=== PATIENT | male | born 1985 | race Caucasian/White ===

== ENCOUNTER 2016-05-26 17:09 | Emergency (ER) | payer OTHER ==
[~2016-05-26] VITALS: Ht 182.9 cm; Wt 72.7 kg
[~2016-05-26 17:09] MED LIST: HYD200 PO; METHOTREX PO; PRE20 PO; TACR100O2 TP; [UNRECOGNIZED DRUG - OTHER]
[2016-05-26 17:12] VITALS: BP 146/98; PULSE 104; RESP 18; O2SAT 99
--- NOTE | 2016-05-26 18:08 | ED.REPORT ---
HPI-General Illness Date of Service May 26, 2016 ED Provider: Dr. Harry Viramontes D.O. A 31 year old male with a history of systemic lupus erythematosus, peptic ulcers , and immune thrombocytopenic purpura presents to the ED from Urgent Care after he was found to have low platelet levels just prior to arrival. The patient was seen at for malaise, loss of appetite, fever (38.3 in ED), chills, diaphoresis, cough, sore throat, nausea, diarrhea, vomiting, worsened malar rash , insomnia, epigastric pain, and cough-induced chest pain onset three days ago. He denies generalized myalgias, ear pain, hematemesis, hemoptysis, hematochezia , melena, or headache. His rapid strep test at was negative. He has never had a blood transfusion previously. Nursing Notes Stated Complaint: LOW PLATELET LEVEL, TRANSFUSION Chief Complaint: General Complaint Nursing Notes Reviewed: Yes Allergies: Coded Allergies: Sulfa (Sulfonamide Antibiotics) (Verified Allergy, Unknown, 05/26/16) Scheduled ([Betamethason]) PRN Hydroxychloroqine-Expunged Drug, Do Not Renew (Plaquenil-Expunged Drug, Do Not Renew!) 200 Mg Tablet MG PO DAILY MethoTREXate-Expunged Drug, Do Not Renew! (RheumaTREX-Expunged Drug, Do Not Renew!) 2.5 Mg Tablet 4 PO BID PredniSONE-Expunged Drug, Do Not Renew! (PredniSONE-Expunged Drug, Do Not Renew! ) 20 Mg Tab 10 MG PO DAILY TAKE WITH FOOD Tacrolimus-Expunged Drug, Do Not Renew! (Protopic-Expunged Drug, Do Not Renew!) 100 Gm Oint..gm. 100 GM TP PRN General Time Seen by MD: 18:08 Chief Complaint Other (Low Platelet Levels) Hx Obtained From: Patient Arrived By: Walk-in Sudden in Onset?: Yes Onset Occurred: 3 days ago Symptom Duration: Since onset Location: : Neck (Throat) Quality: Painful Severity: Current: Moderate Severity: Maximum: Moderate Associated with: Reports: Cough, Fever, Nausea, Vomiting, Denies: Headache Pertinent Negative: Relieved by nothing Context Related History: Reports Autoimmune disorder Recent Healthcare: Recent doctor visit, Recent testing Similar Sx Previous: Yes Past Medical History Past Medical History Systemic lupus erythematosus Peptic ulcers Immune thrombocytopenic purpura Past Surgical History None reported Smoking History Unknown if Ever Smoker Social History Other Social History: Good social support, Lives with children Ambulatory Status Independent Review of Systems + low platelet levels, loss of appetite Full Review of Systems Constitutional: Reports: Chills, Fever (38.3 in ED), Malaise Ears / Nose / Throat: Reports: Sore throat, Denies: Earache bilateral Respiratory: Reports: Non-productive cough, Denies: Hemoptysis Cardiovascular: Reports: Chest pain (With cough) GI: Reports: Abdominal pain (Epigastric pain), Diarrhea, Nausea, Vomiting, Denies: Hematemesis, Hematochezia, Melena Musculoskeletal: Denies: Myalgia Skin: Reports Diaphoresis, Reports Rash (Malar rash worsened from baseline) Neurologic: Denies: Headache Psychiatric: Reports: Insomnia Complete sys rev & neg: except as marked. Physical Exam Vital Signs Vital Signs Date Time Temp Pulse Resp B/P Pulse Ox O2 Delivery O2 Flow Rate FiO2 05/26/16 22:58 36.7 84 12 128/66 99 Room Air 05/26/16 20:30 36.9 82 18 122/72 99 05/26/16 17:12 38.3 104 18 146/98 99 Room Air Initial VS: Reviewed Head / Eyes: Atraumatic, Normocephalic Neck: Supple, Full range of motion Respiratory: Breath sounds normal, Clear to auscultation, No respiratory distress Cardiovascular: Regular rate & rhythm, Heart sounds normal Skin: Warm, Dry, No cyanosis Neurologic: Alert, Oriented, Nonfocal Psychiatric: Mood/affect normal, Behavior normal, Normal thought content General/Constitutional: Awake, Alert, No acute distress ENT: Airway patent, Mucous membranes moist Pharynx / Tonsils / Uvula: Positive: Pharyngeal erythema Left-sided malar rash Abdomen: Soft, Non-tender Interpretation & Diagnostics Interpretation & Diagnostics: Influenza Negative Lab Results Interpretation Result Diagram: 05/26/16 2125 05/26/16 1845 Test 05/26/16 18:45 05/26/16 20:41 05/26/16 21:25 White Blood Count 7.0th/mm3 (3.8-10.1) Red Blood Count 5.37mil/mm3 (4.40-5.80) Mean Corpuscular Volume 84fL (81-100) Mean Corpuscular Hemoglobin 29.8pg (27.0-35.0) Mean Corpuscular Hemoglobin Concent 35.2% (32.0-37.0) Red Cell Distribution Width 13.1% (12.3-15.4) Platelet Count 21bil/L (150-400) Neutrophils (%) (Auto) 65% (40-74) Lymphocytes (%) (Auto) 19% (14-46) Monocytes (%) (Auto) 16% (4-12) Eosinophils (%) (Auto) 0% (0-5) Basophils (%) (Auto) 0% (0-3) Hematology Comments Wbc Sodium Level 132mEq/L (134-144) Potassium Level 3.9mEq/L (3.5-5.2) Chloride Level 92mEq/L (97-108) Carbon Dioxide Level 25mmol/L (18-29) Blood Urea Nitrogen 13mg/dL (6-20) Creatinine 0.88mg/dL (0.76-1.27) Estimat Glomerular Filtration Rate 106mL/min (>59) Glucose Level 93mg/dL (60-99) Calcium Level 8.9mg/dL (8.5-10.1) Total Bilirubin 0.4mg/dL (0.0-1.2) Aspartate Amino Transf (AST/SGOT) 26U/L (0-50) Alanine Aminotransferase (ALT/SGPT) 13U/L (0-44) Alkaline Phosphatase 61U/L (25-150) Total Protein 7.8g/dL (6.4-8.4) Albumin 4.0g/dL (3.4-5.0) Hold [place] Top Tube Received (Received) Urine Color Yellow (YELLOW) Urine Appearance Clear (CLEAR,HAZY) Urine pH 6.0 (5.0-8.0) Urine Specific [place] 1.020 (1.003-1.035) Urine Protein Negativemg/dL (NEG,TRACE) Urine Glucose (UA) Negativemg/dL (NEGATIVE) Urine Ketones Negativemg/dL (NEGATIVE) Urine Occult Blood Negative (NEGATIVE) Urine Nitrite Negative (NEGATIVE) Urine Bilirubin Negative (NEGATIVE) Urine Urobilinogen 1.0mg/dL (NORMAL) Urine Leukocyte Esterase Negative (NEGATIVE) Urine RBC 0-2/hpf (0-2) Urine WBC 0-5/hpf (0-5) Urine Epithelial Cells None/hpf (NONE-MOD) Urine Crystals None seen (NONE SEEN) Urine Bacteria None/hpf (NONE-FEW) Urine Hyaline Casts None/lpf (NONE) Urine Granular Casts None seen (NONE SEEN) Urine Waxy Casts None seen (NONE SEEN) Urine Red Blood Cell Casts None seen (NONE SEEN) Urine White Blood Cell Casts None seen (NONE SEEN) Urine Mucus None seen (None Seen) Urine Trichomonas None seen (NONE SEEN) Urine Yeast None (NONE SEEN) Urinalysis Comment None Urine Culture Reflexed Not indicated Hemoglobin 13.7g/dL (13.8-17.2) Hematocrit 39.2% (41.0-50.0) X-Ray Chest Interpretation Chest Xray Interpretation: IMPRESSION: No acute cardiopulmonary disease. Dictated by: Ramona Méndez M.D. on 05/26/2016 at 19:06 View: AP & lat Interpretation / Wet Read by: Interpret - Radiologist Re-Eval/Medical Decision Med Decision/Clinical Course 31-year-old male was seen at the urgent care for gastrointestinal symptoms and a sore throat. He has a history of ITP so a CBC was performed. Evidently his platelet count was 10,000. The urgent care doctors consulted with his marketing technology coordinator and he was recommended to come in for platelet transfusion. Mr. Frost is having no bleeding whatsoever. He has not had a nosebleed. He does not have any bruising or petechia to skin. He does not having bleeding when he blows his nose or brushes his teeth. He has not had any black or bloody stools. Did have a low-grade fever. This is associated with diarrhea. I repeated his labs and his platelet count was 20,000. I consulted with our dry pan feeder who strongly recommends against platelet transfusion. His recommendations were a 15 day steroid burst and taper followed by maintenance steroids. I check serial H&H's and they were great. His vitals normalized. He looked well and will be discharged home with close outpatient follow-up. Source of Hx: Old records Time of Eval: 20:13 Patient Status: Condition improved Re-Evaluation/Progress Note: Discussed with patient x-ray and lab results, diagnosis, and plan for repeat labs and subsequent discharge. Follow-up and return to the ER instructions given. Patient agrees with plan for care and all questions were addressed. Consultation #1: Referral / Consult Name: Matt Stafford MD Consulted With: Hospitalist Call Returned at: 19:44 Health Assistant: Agrees with mc, Agrees with plan Note: Requests oncology consult Consultation #2: Referral / Consult Name: Jimbo Virgen MD Call Returned at: 19:52 Health Assistant: Agrees with mc, Agrees with plan Note: Recommends discharge with close follow-up rather than admit Counseled Regarding: Diagnosis, Lab results, Need for follow-up, When/why to return to ED Discharge & Departure Primary Impression: ITP (idiopathic thrombocytopenic purpura) Additional Impressions: Diarrhea SLE (systemic lupus erythematosus) Disposition: Home Discharge Condition All VS Reviewed: Yes Condition: Stable Patient Instructions: Acute Diarrhea (ED) Additional Instructions: Thank you for entrusting us with your care. Please take Prednisone taper as prescribed. Call your primary care provider for a follow-up appointment tomorrow. Return to the ER with any new or worsening symptoms. Return right away if you have any type of bleeding what so ever. Prednisone: 40mg daily for 5 days then 20 mg daily for 5 days then 10 mg daily for 5 days and then back to your usual dose. Call your marketing technology coordinator to discuss all of this as well. Take one [place] every 6 hours as needed for the abdominal cramping. Do not drive tonight. Do not drive or drink alcohol or consume acetaminophen while taking the [place]. Referrals: Whit Milton MD (PCP) Wing Valdez MD Attestation Portions of this note were transcribed by Jillian Wang. I, Dr. Viramontes, personally performed the history, physical exam, and medical decision-making; I reviewed and confirmed the accuracy of the information in the transcribed note. Signed by: Aashish Garner, 05/26/2016, 22:23 copies to: Wing Valdez MD; Whit Milton MD, Todd P DO May 26, 2016 18:08 JILLIAN WANG May 26, 2016 18:36
--- NOTE | 2016-05-26 19:07 | DRSVH ---
PROCEDURE: X-RAY CHEST, TWO VIEWS ([id number]) INDICATIONS: cough TECHNIQUE: 2 views of the chest were acquired. COMPARISON: None. FINDINGS: Surgical changes and devices: None. Lungs and pleura: No pleural effusions or pneumothorax. Lungs are clear. Mediastinum: Mediastinal contours are normal. Heart size is normal. Bones and chest wall: No suspicious bony abnormalities. Soft tissues appear unremarkable. IMPRESSION: No acute cardiopulmonary disease. Dictated by: Ramona Méndez M.D. on 05/26/2016 at 19:06 Approved by: Ramona Méndez M.D. on 05/26/2016 at 19:06
[2016-05-26 19:28] LABS: Mean Corpuscular Hemoglobin 29.8 pg (27.0-35.0); NEUTROPHILS % (AUTO) 65 % (40-74); Platelet Count 21 bil/L (150-400)
[2016-05-26 19:29] LABS: BASOPHILS % (AUTO) 0 % (0-3); EOSINOPHILS % (AUTO) 0 % (0-5); MONOCYTES % (AUTO) 16 % (4-12); Mean Corpuscular Volume 84 fL (81-100)
[2016-05-26] MEDS ORDERED: predniSONE 20 mg Tablet PO ONE (19:40)
[2016-05-26] MEDS ORDERED: 0.9% Sodium Chloride 1,000 ML IV SCH (19:54)
[2016-05-26] MEDS ORDERED: Alum-Mag Hydrox-Simeth 30 mL Suspension PO PRN (19:55)
[2016-05-26] MEDS ORDERED: Ondansetron 2 mg/mL 2 mL Inj IVPUSH PRN (19:55)
[2016-05-26] MEDS ORDERED: Polyethylene Glycol (PEG) 17 Gm Powder PO PRN (19:55)
[2016-05-26] MEDS ORDERED: HYDROcodone-APAP 5-325 mg Tablet PO ONE (20:20)
[2016-05-26] MEDS ORDERED: 0.9% Sodium Chloride 1,000 ML IV ONE (20:20)
[2016-05-26] MEDS ORDERED: Pantoprazole 4 mg/mL 10 mL Inj IVPUSH ONE (20:20)
[2016-05-26 20:30] VITALS: BP 122/72; PULSE 82; RESP 18; O2SAT 99
[2016-05-26 21:06] LABS: APPEARANCE,URINE CLEAR (CLEAR,HAZY); COLOR,URINE YELLOW (YELLOW)
[2016-05-26 21:07] LABS: OCCULT BLOOD,URINE NEGATIVE (NEGATIVE)
[2016-05-26] MEDS ORDERED: _HYDROcodone/APAP 5-325 mg Tablet PO PRN (22:15)
[2016-05-26 22:58] VITALS: BP 128/66; PULSE 84; RESP 12; O2SAT 99
[2016-05-27] MEDS ORDERED: Sodium Chloride LOK Flush 10 mL Syringe IVFLUSH SCH (00:30)
== END 2016-05-26 23:01 | disposition home or self-care (01) ==
LOC: SED 17:09
DX: D69.3 Immune thrombocytopenic purpura (principal); M32.9 Systemic lupus erythematosus, unspecified; R19.7 Diarrhea, unspecified; G47.00 Insomnia, unspecified; R11.2 Nausea with vomiting, unspecified; R10.13 Epigastric pain; R05 Cough; J02.9 Acute pharyngitis, unspecified; Z88.2 Allergy status to sulfonamides
CPT/HCPCS: 36415; 71020; 80053; 81000; 85014; 85018; 85025; 87804; 96361; 96374; 99285; J7030

== ENCOUNTER 2016-07-12 00:33 | Emergency (ER) | payer OTHER ==
[~2016-07-12] VITALS: Ht 182.9 cm; Wt 72.7 kg
[2016-07-12 00:36] VITALS: BP 148/95; PULSE 92; RESP 17; O2SAT 98
--- NOTE | 2016-07-12 00:49 | ED.REPORT ---
HPI-Headache Date of Service Jul 12, 2016 ED Provider: Capri Peraza MD History of Present Illness: Parker Frost is a 31 year old man with a PMH of SLE, ITP, and PUD who presents following waking in the night with "The worst headache of my life". He further states that he had run out of his medication 3 weeks ago and has not had any medication in that interim. He endorses nausea and vomiting, and denies visual or sensory changes, weakness or paresthesia in his extremities, or altered speech. He admits that he drank 2 alcoholic beverages this evening per his usual routine. He localizes the pain between his temples and denies radiation. Nursing Notes Stated Complaint: HEADACHE Chief Complaint: Headache Nursing Notes Reviewed: Yes Allergies: Coded Allergies: Sulfa (Sulfonamide Antibiotics) (Verified Allergy, Unknown, 05/26/16) Scheduled ([Betamethason]) PRN Hydroxychloroqine-Expunged Drug, Do Not Renew (Plaquenil-Expunged Drug, Do Not Renew!) 200 Mg Tablet MG PO DAILY MethoTREXate-Expunged Drug, Do Not Renew! (RheumaTREX-Expunged Drug, Do Not Renew!) 2.5 Mg Tablet 4 PO BID PredniSONE-Expunged Drug, Do Not Renew! (PredniSONE-Expunged Drug, Do Not Renew! ) 20 Mg Tab 10 MG PO DAILY TAKE WITH FOOD Tacrolimus-Expunged Drug, Do Not Renew! (Protopic-Expunged Drug, Do Not Renew!) 100 Gm Oint..gm. 100 GM TP PRN Scheduled PRN Butalbital/Acetamin/Caff 50-300-40 mg (Fioricet 50-300-40 mg) 1 Each Capsule 1 CAPSULE PO Q4H PRN PRN Headache General Time Seen by MD: 00:48 Chief Complaint Headache Hx Obtained From: Patient Sudden in Onset?: Yes Onset Occurred: 1 - 4 hours ago Symptom Duration: Since onset Location: : Temporal bilateral Quality: Sharp, Throbbing Severity: Current: Severe Severity: Maximum: Severe Recent Healthcare: No recent doctor visit Similar Sx Previous: No Past Medical History Past Medical History Systemic lupus erythematosus Peptic ulcers Immune thrombocytopenic purpura Past Surgical History None reported Smoking History Unknown if Ever Smoker Social History Other Social History: Good social support, Lives with children Ambulatory Status Independent Review of Systems GI: Reports: Nausea Neurologic: Reports: Headache Complete sys rev & neg: except as marked. Physical Exam Physical Exam Notes: Gen: A/O x3 drowsy cooperative male in moderate acute distress secondary to headache and nausea Neck: Supple, Full ROM, no lymphadenopathy HEENT: PERRL, EOMI, mucous membranes moist, no scleral icterus CV: RRR, no murmurs rubs or gallops Resp: Lungs CTA BL, no wheezing rales or rhonchi Extr: No cyanosis clubbing or edema Neuro: CN 2-12 intact, no focal neurologic deficit, mild photophobia Initial Vital Signs Vital Signs (First) Date Time Temp Pulse Resp B/P Pulse Ox O2 Delivery O2 Flow Rate FiO2 07/12/16 00:36 36.1 92 17 148/95 98 Room Air Initial VS: Reviewed Interpretation & Diagnostics Lab Results Interpretation Result Diagram: 07/12/16 0050 07/12/16 0050 Test 07/12/16 00:50 White Blood Count 9.8th/mm3 (3.8-10.1) Red Blood Count 4.96mil/mm3 (4.40-5.80) Hemoglobin 15.3g/dL (13.8-17.2) Hematocrit 43.1% (41.0-50.0) Mean Corpuscular Volume 86.9fL (81-100) Mean Corpuscular Hemoglobin 30.8pg (27.0-35.0) Mean Corpuscular Hemoglobin Concent 35.5% (32.0-37.0) Red Cell Distribution Width 14.3% (12.3-15.4) Platelet Count 45bil/L (150-400) Neutrophils (%) (Auto) 66.5% (40-74) Lymphocytes (%) (Auto) 25.4% (14-46) Monocytes (%) (Auto) 7.0% (4-12) Eosinophils (%) (Auto) 0.5% (0-5) Basophils (%) (Auto) 0.4% (0-3) Prothrombin Time 10.5sec (8.1-12.5) Prothromb Time International Ratio 0.98ratio Activated Partial Thromboplast Time 25.6sec (22.8-33.0) Sodium Level 141mEq/L (134-144) Potassium Level 3.9mEq/L (3.5-5.2) Chloride Level 102mEq/L (97-108) Carbon Dioxide Level 25mmol/L (18-29) Blood Urea Nitrogen 10mg/dL (6-20) Creatinine 0.58mg/dL (0.76-1.27) Estimat Glomerular Filtration Rate 171mL/min (>59) Glucose Level 130mg/dL (60-99) Calcium Level 8.3mg/dL (8.5-10.1) Hold [place] Top Tube Received (Received) CT Head Interpretation Study: Head CT no contrast, Head CT w contrast Interpretation / Wet Read by: Interpret - Radiologist NL CT Head Findings: Normal brain Re-Eval/Medical Decision Med Decision/Clinical Course Given the patient's history of very low platelet counts(current plt 45) and the sudden and severe onset of his headache we elected to conduct a CT brain scan. Initial CT w/o contrast was unremarkable. BUN/Cr were within normal limits so a CT angio was conducted which was also normal. The patient was discharged with a prescription for Fiorcet, and was given follow up instructions and return precautions. Counseled Regarding: Diagnosis, Lab results, Need for follow-up, When/why to return to ED Discharge & Departure Shift Change Sign-Out Patient Care Transferred: No Discussed Complaint(s): Yes Laboratory Evaluation: Lab evaluation discussed Imaging Studies: Imaging discussed Response to Therapy: Improved Impression: Primary Impression: Headache Headache type: unspecified Headache chronicity pattern: acute headache Intractability: not intractable Qualified Code: R51 - Headache Disposition: Home Discharge Condition All VS Reviewed: Yes Condition: Critical Patient Instructions: Acute Headache (ED) Additional Instructions: It is imperative that you make an appointment with your primary care doctor in order to restart your medications. The type of conditions that you have are relentless and will get progressively worse without medication. It is also possible that the headache you are experiencing is a result of abruptly stopping your Prednisone, and that returning to this medication will prevent any further headaches and other systemic manifestations of steroid withdrawal. If you develop any changes in speech, vision, sensation, strength, or develop any facial asymmetry or other concerning neurological symptoms please return to the ED for further evaluation. Referrals: Whit Milton MD (PCP) Attending Statement I agree partially with the resident's note. This is a 31-year-old male with past medical history of ITP and lupus who is not currently taking medications who states that he has had a severe headache for the last 2 hours. This headache is similar to headaches he has had in the past, however, it is not going away like his headaches usually do. He has no focal neurologic deficits. Cranial 2 through 12 are intact, normal finger-nose, normal heel wolfe. CT head was negative for acute bleed, and CTA of the head did not show any aneurysm. At this time, given the patient's time course of 2 hours, negative CT head, and negative CTA, I do not feel he requires lumbar puncture to rule out subarachnoid hemorrhage. He has been discharged with Fioricet after relief of pain in the ER with Toradol, Compazine, and Benadryl. He is aware and amenable to discharge. copies to: Whit Milton MD, Rebecca A MD Jul 12, 2016 00:49 Wang Sebastian DO Jul 12, 2016 01:08
[2016-07-12] MEDS ORDERED: Ondansetron 2 mg/mL 2 mL Inj IVPUSH ONE (01:00)
[2016-07-12 01:05] LABS: BASOPHILS % (AUTO) 0.4 % (0-3); EOSINOPHILS % (AUTO) 0.5 % (0-5); Mean Corpuscular Hemoglobin 30.8 pg (27.0-35.0); Mean Corpuscular Volume 86.9 fL (81-100); NEUTROPHILS % (AUTO) 66.5 % (40-74); Platelet Count 45 bil/L (150-400)
[2016-07-12 01:20] LABS: INR 0.98 ratio
[2016-07-12] MEDS ORDERED: ProchlorPERazine 5 mg/mL 2 mL Inj IVPUSH ONE (01:30)
[2016-07-12] MEDS ORDERED: 0.9% Sodium Chloride 1,000 ML IV ONE (02:45)
[2016-07-12] MEDS ORDERED: BUTA1CAP39 PO (02:56)
[2016-07-12 03:56] VITALS: BP 152/100; PULSE 99; RESP 16; O2SAT 99
--- NOTE | 2016-07-12 08:04 | DRSVH ---
PROCEDURE: CT BRAIN WITHOUT CONTRAST ([id number]) INDICATIONS: headache TECHNIQUE: Noncontrast 4.5 mm thick angled axial sections acquired from the foramen magnum to the vertex, with c oronal reformats. COMPARISON: None. FINDINGS: Image quality: Excellent. CSF spaces: Basal cisterns are patent. No extra-axial fluid collections. Ventricles are normal in size and shape. Brain: No midline shift. No intracranial masses or hemorrhage. Rivas-white matter interface is norm al. Skull and face: Calvarium and visualized facial bones are intact, without suspicious lesions. Sinuses: Visualized sinuses and mastoids are clear. IMPRESSION: No acute intracranial disease process. Dictated by: Erika Barros MD, PhD on 07/12/2016 at 8:02 Approved by: Erika Barros MD, PhD on 07/12/2016 at 8:03
--- NOTE | 2016-07-12 08:09 | DRSVH ---
PROCEDURE: CT ANGIOGRAPHY OF THE BRAIN WITH AND WITHOUT CONTRAST ([id number]) INDICATIONS: headache TECHNIQUE: Precontrast 4.5 mm thick angled axial sections acquired from the foramen magnum to the vertex. Afte r the administration of intravenous contrast, 1 mm thick sections acquired through the [place] of [place] is. Postcontrast 4.5 mm thick sections then re-acquired from the foramen magnum to the vertex. 3-di mensional bmrdrvb-vvujecreo-iertlaxmap (MIP) and/or volume rendering reformats were acquired of the c entral intracranial vasculature. For radiation dose reduction, the following was used: automated ex posure control, adjustment of mA and/or kV according to patient size. COMPARISON: None. FINDINGS: Image quality: Excellent. Anterior circulation: Intracranial internal carotid arteries are normal in size and flow. The flow within the paired anterior cerebral arteries is normal and symmetric. The flow within the middle cer ebral arteries is normal and symmetric. The anterior communicating artery is seen. No aneurysms are seen. Posterior circulation: Visualized portions of the vertebral arteries demonstrate normal caliber, and join to form a normal appearing basilar artery. Flow within the posterior cerebral arteries is norm al and symmetric. No aneurysms are seen. Dural sinuses enhance normally. CSF spaces: Ventricles are normal in size and shape. Basal cisterns are patent. No extra-axial flu id collections. Brain: No midline shift. No intracranial bleeds or masses. Rivas-white matter interface appears int act. Skull and face: Calvarium and facial bones appear intact, without suspicious lesions. Sinuses: Mucous retention cysts versus polyps are noted in the maxillary sinuses bilaterally. mastoid s are clear. IMPRESSION: 1. No acute intracranial disease process. 2. No evidence of vascular stenosis or vascular occlusion. 2. Bilateral maxillary sinus mucus retention cysts versus polyps. Dictated by: Erika Barros MD, PhD on 07/12/2016 at 8:03 Approved by: Erika Barros MD, PhD on 07/12/2016 at 8:07
== END 2016-07-12 03:55 | disposition home or self-care (01) ==
LOC: SED 00:33
DX: R51 Headache (principal); R11.2 Nausea with vomiting, unspecified; Z88.2 Allergy status to sulfonamides
CPT/HCPCS: 36415; 70450; 70496; 80048; 85025; 85610; 85730; 96361; 96374; 96375; 99285; J0780; J1200; J1885; J2405; J7030; Q9967